=== PATIENT | female | born 1930 | race Caucasian/White ===

== ENCOUNTER 2018-03-25 11:29 | Emergency (ER) | payer MEDICARE, OTHER ==
[~2018-03-25] VITALS: Ht 160 cm; Wt 41.7 kg
[~2018-03-25 11:29] MED LIST: ASPIRIN EC81 MG PO; LEVAQUIN500 MG PO; MIRTAZAPINE30 MG PO; OMEPRAZOLE20 MG PO; QUETIAPINE FUMA25 MG PO; TRAMADOL HCL50 MG PO
[2018-03-25] MEDS ORDERED: NEURONTIN100 MG PO (11:45)
--- NOTE | 2018-03-25 22:19 | EKG ---
[facility] [address] [facility] [place], [place] [address] Signed Sinus bradycardia Otherwise normal ECG No previous ECGs available Confirmed by YANNICK VARELA MD ([id number]) on 03/25/2018 10:19:29 PM Electronically Signed By: YANNICK VARELA MD 03/25/18 2219 PATIENT NAME: ROSETTE MORGANOTIS Ramos Electrocardiogram DATE OF : 32 PHYSICIAN: YANNICK VARELA MD REPORT #: [id number] REPORT IS CONFIDENTIAL AND NOT TO BE RELEASED WITHOUT AUTHORIZATION
== END 2018-03-25 15:20 | disposition home or self-care (01) ==
LOC: ED 11:29
DX: R09.02 Hypoxemia (principal); F03.90 Unspecified dementia, unspecified severity, without behavioral disturbance, psychotic disturbance, mood disturbance, and anxiety; Z87.891 Personal history of nicotine dependence; Z88.5 Allergy status to narcotic agent; Z79.899 Other long term (current) drug therapy; Z79.82 Long term (current) use of aspirin
CPT/HCPCS: 71045; 93005; 93010; 99284

== ENCOUNTER 2020-05-02 18:36 | Emergency (ER) | payer MEDICARE, OTHER ==
[~2020-05-02] VITALS: Ht 160 cm; Wt 41.7 kg
--- OUTSIDE RECORDS SUMMARY | ~2020-05-02 | XMS | Clinical Summary ---
Demographics + + + | Address | [address] | | | [place] [address] | + + + | Preferred Language | Unknown | + + + | Marital Status | Single | + + + | Hoahaoism Affiliation | Unknown | + + + | Race | Unknown | + + + | Ethnic Group | Other Race | + + + Author + + + | Author | NON REVENUE LOCATIONS | + + + | Organization | NON REVENUE LOCATIONS | + + + | Address | Unknown | + + + | Phone | Unavailable | + + + Support + + +---------+ + | Name | Relationship | Address | Phone | + + +---------+ + | None None | ECON | Unknown | Unavailable | + + +---------+ + Care Team Providers + +------+ + | Care Clay Caster Name | Role | Phone | + +------+ + PCP | Unavailable | + +------+ + Source Comments SHANNA is fully live on both [facility] and [facility] Allergies Not on File Medications Not on file Active Problems Not on file Social History + +-------+ +--------+------+ | Tobacco Use | Types | Packs/Day | Years | Date | | | | | Used | | + +-------+ +--------+------+ | Never Assessed | | | | | + +-------+ +--------+------+ + + + | Sex Assigned at | Date Recorded | | | | + + + | Not on file | | + + + + + + + | Job Start Date | Occupation | Industry | + + + + | Not on file | Not on file | Not on file | + + + + + + + + | Travel History | Travel Start | Travel End | + + + + + + | No recent travel history available. | + + Last Filed Vital Signs Not on file Plan of Treatment Not on file Results Not on filefrom Last 3 Months Insurance + +--------+ +--------+ + +--------+ | Payer | Benefi | Subscriber | Effect | Phone | Address | Type | | | t Plan | ID | andreina | | | | | | / | | Dates | | | | | | Group | | | | | | + +--------+ +--------+ + +--------+ | MEDICARE | MEDICA | xxxxxxxxxx | Effect | [phone] | [address] | Medica | | | RE A & | | andreina | [address] | [address] | | | [address] | | for | | [place] | | | | | | all | | [phone] | | | | | | dates | | | | + +--------+ +--------+ + +--------+ | COMMERCIAL | INDIVI | [phone] | Effect | | | Indemn | | INDIVIDUAL | DUAL | | andriena | | | ity | | | COMMER | | for | | | | | | CIAL | | all | | | | | | | | dates | | | | + +--------+ +--------+ + +--------+ + +--------+ +--------+-------+ + | Guarantor Name | Accoun | Relation to | Date | Phone | Billing Address | | | t Type | Patient | of | | | | | | | | | | + +--------+ +--------+-------+ + | Judy De La Rosa | Person | Self | [birth year] | [address] | | | al/Fam | | 1930 | | [place] [address] | | | kalia | | | | | + +--------+ +--------+-------+ +"
--- OUTSIDE RECORDS SUMMARY | ~2020-05-02 | XMS | Encounter Summary ---
Demographics + + + | Address | [address] | | | [place] [address] | + + + | Home Phone | | + + + | Preferred Language | Unknown | + + + | Marital Status | Unknown | + + + | Latter-Day Affiliation | Unknown | + + + | Race | Unknown | + + + | Ethnic Group | Unknown | + + + Author + + + | Author | [facility] | | | and [place] | + + + | Organization | [facility] | | | and [place] | + + + | Address | Unknown | + + + | Phone | Unavailable | + + + Care Team Providers + +------+ + | Care Snow Groomer Name | Role | Phone | + +------+ + PCP | Unavailable | + +------+ + Encounter Details +--------+ + + + + | Date | Type | Department | Care Team | Description | +--------+ + + + + | 03/17/ | Hospital | [facility] | Margie Giordano MD | Guerrero Ramirez-Tenzin | | 2005 | Encounter | [facility] | [address] | Vessel | | | | CLINICAL DECISION | [address] | | | | | [address] [place] [address] | [place], [place] | | | | | [place], [place] | [address] | | | | | [address] | [phone] | | | | | [phone] | | | +--------+ + + + [...] on file | | + + + documented as of this encounter Plan of Treatment Not on filedocumented as of this encounter Visit Diagnoses + + | Diagnosis | + + | Coronary atherosclerosis of unspecified type of vessel, pyramid lake or graft | + + documented in this encounter"
--- OUTSIDE RECORDS SUMMARY | ~2020-05-02 | XMS | Clinical Summary ---
Demographics + + + | Address | [address] | | | [place] [address] | + + + | Home Phone | | + + + | Preferred Language | Unknown | + + + | Marital Status | Unknown | + + + | Denominational Affiliation | Unknown | + + + | Race | Unknown | + + + | Ethnic Group | Unknown | + + + Author + + + | Author | [facility] | | | and [place] | + + + | Organization | [facility] | | | and [place] | + + + | Address | Unknown | + + + | Phone | Unavailable | + + + Care Team Providers + +------+ + | Care Derrick Man Name | Role | Phone | + +------+ + PCP | Unavailable | + +------+ + Allergies Not on File Medications Not on [...] on file | | + + + Last Filed Vital Signs Not on file Plan of Treatment + + +-------+ + | Health Maintenance | Due Date | Last | Comments | | | | Done | | + + +-------+ + | Vaccine: | | | | | Dtap/Tdap/Td (1 - | 0 | | | | Tdap) | | | | + + +-------+ + | Vaccine: Zoster (1 | | | | | of 2) | 1 | | | + + +-------+ + | Vaccine: | | | | | Pneumococcal 65+ (1 | 6 | | | | of 1 - PPSV23) | | | | + + +-------+ + | Vaccine: Influenza | | | | | (#1) | 0 | | | + + +-------+ + Results Not on filefrom Last 3 Months Advance Directives + + + + + | Type | Date Recorded | Patient | Explanation | | | | Phosphorus Processing Supervisor | | + + + + + | Advance | 03/18/2006 3:51 | | | | Directive | PM | | | + + + + + | Advance | 03/17/2006 3:51 | | MAR 17 2006 12:59:05:[id number] GMT | | Directive | PM | | | + + + + + | Advance | 03/17/2006 3:51 | | MAR 17 2006 12:57:24:440 GMT | | Directive | PM | | | + + + + +"
--- OUTSIDE RECORDS SUMMARY | ~2020-05-02 | XMS | Encounter Summary ---
Demographics + + + | Address | [address] | | | [place] [address] | + + + | Home Phone | | + + + | Preferred Language | Unknown | + + + | Marital Status | Unknown | + + + | Latter Day Affiliation | Unknown | + + + | Race | Unknown | + + + | Ethnic Group | Unknown | + + + Author + + + | Author | [facility] | | | and [place] | + + + | Organization | [facility] | | | and [place] | + + + | Address | Unknown | + + + | Phone | Unavailable | + + + Care Team Providers + +------+ + | Care Pot Filler Name | Role | Phone | + +------+ + PCP | Unavailable | + +------+ + Encounter Details +--------+ + + + + | Date | Type | Department | Care Team | Description | +--------+ + + + + | 02/05/ | Hospital | [facility] | | | | 2007 | Encounter | MED CTR XRAY [address] | | | | | | [place] | | | | | | [place] [address] | | | | | | [phone] | | | +--------+ + + + [...] filedocumented as of this encounter Visit Diagnoses Not on filedocumented in this encounter"
--- OUTSIDE RECORDS SUMMARY | ~2020-05-02 | XMS | Encounter Summary ---
Demographics + + + | Address | [address] | | | [place] [address] | + + + | Home Phone | | + + + | Preferred Language | Unknown | + + + | Marital Status | Unknown | + + + | Advent Affiliation | Unknown | + + + | Race | Unknown | + + + | Ethnic Group | Unknown | + + + Author + + + | Author | [facility] | | | and [place] | + + + | Organization | [facility] | | | and [place] | + + + | Address | Unknown | + + + | Phone | Unavailable | + + + Care Team Providers + +------+ + | Care University Controller Name | Role | Phone | + +------+ + PCP | Unavailable | + +------+ + Encounter Details +--------+ + + + + | Date | Type | Department | Care Team | Description | +--------+ + + + + | 05/29/ | Hospital | [facility] | [facility], | Unspecified Backache | | 2007 | Encounter | [facility] | [address] | | | | | CLINICAL DECISION | [address] | | | | | [address] | [place] [address] | | | | | [place], [place] | [phone] | | | | | [address] | | | | | | [phone] | | | +--------+ + + + [...] + | Diagnosis | + + | Backache, unspecified | + + documented in this encounter"
--- OUTSIDE RECORDS SUMMARY | ~2020-05-02 | XMS | Encounter Summary ---
Demographics + + + | Address | [address] | | | [place] [address] | + + + | Home Phone | | + + + | Preferred Language | Unknown | + + + | Marital Status | Unknown | + + + | Church Affiliation | Unknown | + + + | Race | Unknown | + + + | Ethnic Group | Unknown | + + + Author + + + | Author | [facility] | | | and [place] | + + + | Organization | [facility] | | | and [place] | + + + | Address | Unknown | + + + | Phone | Unavailable | + + + Care Team Providers + +------+ + | Care Audioprosthologist Name | Role | Phone | + +------+ + PCP | Unavailable | + +------+ + Encounter Details +--------+ + + + + | Date | Type | Department | Care Team | Description | +--------+ + + + + | 01/08/ | Hospital | [facility] | Conversion | Pain | | 2014 | Encounter | [address]VERSION [address] | Transaction, | | | | [address] | Provider Unknown | | | | | [place], [place] | [phone] | | | | | [address] | | | | | | [phone] | | | +--------+ + + + [...] | + +--------+ + + + | XR CHEST 1 VIEW | Routin | 04/05/2011 | | Results for this | | | e | 12:42 AM | | procedure are in the | | | | PDT | | results section. | + +--------+ + + + documented in this encounter Results XR Chest 1 Vw (04/05/2011 12:42 AM PDT) + + | Specimen | + + | | + + + + + | Narrative | Performed At | + + + | This is a non-reportable procedure without a radiologist report and | | | is used for image storage only | | + + + + + | Procedure Note | + + | Manfred Roberts Arnol - 05/11/2019 11:18 PM PDT This is a non-reportable procedure | | without a radiologist report and isused for image storage only | + + documented in this encounter Visit Diagnoses + + | Diagnosis | + + | Pain Generalized pain | + + documented in this encounter"
--- OUTSIDE RECORDS SUMMARY | ~2020-05-02 | XMS | Encounter Summary ---
Demographics + + + | Address | [address] | | | [place] [address] | + + + | Home Phone | | + + + | Preferred Language | Unknown | + + + | Marital Status | Unknown | + + + | Advent Affiliation | Unknown | + + + | Race | Unknown | + + + | Ethnic Group | Unknown | + + + Author + + + | Author | [facility] | | | and [place] | + + + | Organization | [facility] | | | and [place] | + + + | Address | Unknown | + + + | Phone | Unavailable | + + + Care Team Providers + +------+ + | Care Nursery Supervisor Name | Role | Phone | + +------+ + PCP | Unavailable | + +------+ + Encounter Details +--------+ + + + + | Date | Type | Department | Care Team | Description | +--------+ + + + + | 05/06/ | Hospital | [facility] | [facility]se, | Carotid Art Occ w/o | | 2008 | Encounter | [address] | [address] | Inf[address] | | | | [address] | [place] | | | | | [place], [place] | [place] [address] | | | | | [address] | [phone] | | | | | [phone] | | | +--------+ + + + [...] + | Diagnosis | + + | Occlusion and stenosis of carotid artery without mention of cerebral infarction | + + documented in this encounter"
--- OUTSIDE RECORDS SUMMARY | ~2020-05-02 | XMS | Encounter Summary ---
Demographics + + + | Address | [address] | | | [place] [address] | + + + | Home Phone | | + + + | Preferred Language | Unknown | + + + | Marital Status | Unknown | + + + | Baptist Affiliation | Unknown | + + + | Race | Unknown | + + + | Ethnic Group | Unknown | + + + Author + + + | Author | [facility] | | | and [place] | + + + | Organization | [facility] | | | and [place] | + + + | Address | Unknown | + + + | Phone | Unavailable | + + + Care Team Providers + +------+ + | Care Ironworker Apprentice Shop Name | Role | Phone | + +------+ + PCP | Unavailable | + +------+ + Encounter Details +--------+ + + + + | Date | Type | Department | Care Team | Description | +--------+ + + + + | 04/05/ | Hospital | [facility] | Lasjose antonio, Mo[place], | OTHER GENERAL | | 2010 - | Encounter | [address] | [address] | SYMPTOMS; | | | | [address] | [place], [place] | Unspecified chest | | 04/07/ | | [place], [place] | [address] | pain | | 2010 | | [address] | [phone] | | | | | [phone] | | | +--------+ + + + [...] +--------+ + + + | XR CHEST 2 VIEWS | Routin | 04/06/2011 | | Results for this | | | e | 7:42 AM | | procedure are in the | | | | PDT | | results section. | + +--------+ + + + documented in this encounter Results XR Chest 2 Vws (04/06/2011 7:42 AM PDT) + + | Specimen | + + | | + + + + + | Narrative | Performed At | + + + | [facility] [address] Ph: | | | Patient Name: JAI MORGAN Date of : | | | 1930 Medical Record: [id number] Account: [id number] | | | Exam Date/Time: 04/06/2011 01:40 Ordering | | | Physician: CURT INGRAM Order Detail: [id number] Exam Description: XR | | | CHEST 2 VIEW | | | JAI | | | L NICOLASLETTY XR CHEST 2 VIEW 04/06/2011 1:40 AM HISTORY: 81 years. | | | Female. Chest pain. TECHNIQUE: Dual energy frontal and a | | | lateral chest radiograph. COMPARISON: Images obtained during | | | vertebroplasty of the thoracic spine June 03. FINDINGS: | | | The lungs are clear and well inflated. The cardiac silhouette is | | | mildly enlarged with a cardiothoracic ratio of 15 to 29. Median | | | sternotomy wires are found. A coronary artery stent is visualized. | | | There is unchanged evidence of vertebroplasty involving the lower | | | thoracic spine moderate compression fracture, unchanged. Two other | | | lower thoracic spine unchanged mild compression fractures are noted | | | in this patient with unchanged evidence of osteopenia. No | | | pneumothorax or pleural effusion is identified. The ossifications in | | | the left upper abdominal quadrant are likely vascular in etiology. | | | IMPRESSION: 1. No acute disease. 2. 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 3. Coronary arterial stent. 4. | | | Mild cardiomegaly. 5. Three unchanged lower thoracic spine | | | vertebral compression fractures, one of which demonstrates unchanged | | | evidence of vertebroplasty. | | + + + + + | Procedure Note | + + | ArmandoManfred Conversion - 05/19/2019 2:50 PM PDT | | [facility] | | [facility] [address] | | | | | | Patient Name: JAI MORGAN | | Date of : 1930 | | Medical Record: [id number] | | Account: [id number] | | | | | | Exam Date/Time: 04/06/2011 01:40 | | Ordering Physician: CURT INGRAM | | Order Detail: [id number] | | Exam Description: XR CHEST 2 VIEW | | | | JAI MORGAN | | XR CHEST 2 VIEW | | 04/06/2011 1:40 AM | | | | HISTORY: | | 81 years. Female. Chest pain. | | | | TECHNIQUE: | | Dual energy frontal and a lateral chest radiograph. | | | | COMPARISON: | | Images obtained during vertebroplasty of the thoracic spine 3 June 03. | | | | FINDINGS: | | The lungs are clear and well inflated. The cardiac silhouette is mildly | | enlarged with a cardiothoracic ratio of 15 to 29. Median sternotomy wires | | are found. A coronary artery stent is visualized. There is unchanged | | evidence of vertebroplasty involving the lower thoracic spine moderate | | compression fracture, unchanged. Two other lower thoracic spine unchanged | | mild compression fractures are noted in this patient with unchanged | | evidence of osteopenia. No pneumothorax or pleural effusion is identified. | | The ossifications in the left upper abdominal quadrant are likely vascular | | in etiology. | | | | IMPRESSION: | | 1. No acute disease. | | | | 2. 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 | | | | 3. Coronary arterial stent. | | | | 4. Mild cardiomegaly. | | | | 5. Three unchanged lower thoracic spine vertebral compression | | fractures, one of which demonstrates unchanged evidence of vertebroplasty. | | | | | + + documented in this encounter Visit Diagnoses + + | Diagnosis | + + | Other general symptoms(780.99) Other general symptoms | + + | Chest pain, unspecified | + + documented in this encounter"
--- OUTSIDE RECORDS SUMMARY | ~2020-05-02 | XMS | Encounter Summary ---
Demographics + + + | Address | [address] | | | [place] [address] | + + + | Home Phone | | + + + | Preferred Language | Unknown | + + + | Marital Status | Unknown | + + + | Hindu Affiliation | Unknown | + + + | Race | Unknown | + + + | Ethnic Group | Unknown | + + + Author + + + | Author | [facility] | | | and [place] | + + + | Organization | [facility] | | | and [place] | + + + | Address | Unknown | + + + | Phone | Unavailable | + + + Care Team Providers + +------+ + | Care Mobile Plant Operators Name | Role | Phone | + +------+ + PCP | Unavailable | + +------+ + Encounter Details +--------+ + + + + | Date | Type | Department | Care Team | Description | +--------+ + + + + | 04/06/ | Orders Only | [facility] | Roxy Braxton | | | 2010 | | [facility] | [address] | | | | | CLINICAL LABORATORY | [place], [place] | | | | | [address] [facility] | [address] | | | | | [place], [place] | [phone] | | | | | [address] | | | | | | [phone] | | | +--------+ + + + [...] | + +--------+ + + + | CULTURE, URINE | Timed | 04/06/2011 | | Results for this | | | | 6:03 AM | | procedure are in the | | | | PDT | | results section. | + +--------+ + + + documented in this encounter Results Culture, Urine (04/06/2011 6:03 AM PDT) + + | Specimen | + + | | + + + + + | Narrative | Performed At | + + + | Specimen Description CLEAN CATCH URINE | EXTERNAL LAB | | Testing performed at | | | [facility] [facility];[place] [address] CULTURE | | | <10,000 CFU/ML MIXED GRAM POSITIVE RAGHU | | | NO SUSCEPTIBILITY TO FOLLOW | | | Testing performed | | | at [facility], [address] [place] [address] REPORT STATUS | | | 04/08/2011 FINAL | | + + + + +---------+ + + | Performing | Address | City/State/Zipcode | Phone Number | | Organization | | | | + +---------+ + + | EXTERNAL LAB | | | | + +---------+ + + documented in this encounter Visit Diagnoses Not on filedocumented in this encounter"
--- OUTSIDE RECORDS SUMMARY | ~2020-05-02 | XMS | Encounter Summary ---
Demographics + + + | Address | [address] | | | [place] [address] | + + + | Preferred Language | Unknown | + + + | Marital Status | Single | + + + | Synagogue Affiliation | Unknown | + + + | Race | Unknown | + + + | Ethnic Group | Other Race | + + + Author + + + | Author | [facility] | + + + | Organization | [facility] | + + [...] Team Providers + +------+ + | Care Athletic Instructor Name | Role | Phone | + +------+ + PCP | Unavailable | + +------+ + Encounter Details +--------+ + + + + | Date | Type | Department | Care Team | Description | +--------+ + + + + | 07/19/ | Ancillary | Registration [id number] | Fransico Alex | | | 2005 | Registratio | [address] | [phone] | | | | [address] | [address] Mailcode: [id number] | | | | | | [place], [place] | | | | | | [address] | | | | | | [phone] | | | +--------+ + + + [...] Ph.D./NeuropathologistT: | | | | | | 07/25/06:[facility] / | | | | | | [...] Luciano, | | | | | | [facility] | | | | | | [...] | + + + + + | [facility] DEPARTMENT OF | [address] [facility] | [place] [address] | | | PATHOLOGY | [address] | | | + + + + + | [facility] DEPARTMENT OF | [address] [facility] | [place] [address] | | | PATHOLOGY | [address] | | | + + + + + documented in this encounter Visit Diagnoses Not on filedocumented in this encounter
--- OUTSIDE RECORDS SUMMARY | ~2020-05-02 | XMS | Clinical Summary ---
Demographics + + + | Address | [address] | | | [place] [address] | + + + | Preferred Language | Unknown | + + + | Marital Status | Single | + + + | Methodist Affiliation | Unknown | + + + [...] Team Providers + +------+ + | Care At Home Independent Call Center Agent Name | Role | Phone | + +------+ + PCP | Unavailable | + +------+ + Source Comments SHANNA is fully live on both [facility] and [facility] InPatient.[facility] Allergies Not on [...] | MEDICA | xxxxxxxxxx | Effect | [phone] | [address] | Medica | | | RE A & | | andreina | [address] | re | | | B | | for | | [place] | | | | | | all | | [phone] | | | | | | dates [...] | | 1930 | | [place] [address] | | | kalia | | | | | + +--------+ +--------+-------+ +"
--- OUTSIDE RECORDS SUMMARY | ~2020-05-02 | XMS | Encounter Summary ---
Demographics + + + | Address | [address] | | | [place] [address] | + + + | Home Phone [...] | Author | [facility] | | | and [place] | + + + | Organization | [facility] | | | and [place] | + + + | Address | Unknown | + + + | Phone | Unavailable | + + + Care Team Providers + +------+ + | Care Greenhouse Florist Name | Role | Phone | + +------+ + PCP | Unavailable | + +------+ + Encounter Details +--------+ + + + + | Date | Type | Department | Care Team | Description | +--------+ + + + + | 07/19/ | Hospital | [facility] | Zi Garcia, | Pain in Limb | | 2005 - | Encounter | CONVERSION [address] | [address] | | | | | [address] | [address] | | | 07/25/ | | [place], [place] | [place] [address] | | | 2005 | | [address] | [phone] | | | | | [phone] | | | +--------+ + + + [...] | Diagnosis | + + | Pain in soft tissues of limb Pain in limb | + + documented in this encounter"
--- OUTSIDE RECORDS SUMMARY | ~2020-05-02 | XMS | Encounter Summary ---
Demographics + + + | Address | [address] | | | [place] [address] | + + + | Home Phone | | + + + | Preferred Language | Unknown | + + + | Marital Status | Unknown | + + + | Muslim Affiliation | Unknown | + + + | Race | Unknown | + + + | Ethnic Group | Unknown | + + + Author + + + | Author | [facility] | | | and [place] | + + + | Organization | [facility] | | | and [place] | + + + | Address | Unknown | + + + | Phone | Unavailable | + + + Care Team Providers + +------+ + | Care Fiber Optic Central Office Installer Name | Role | Phone | + +------+ + PCP | Unavailable | + +------+ + Encounter Details +--------+ + + + + | Date | Type | Department | Care Team | Description | +--------+ + + + + | 04/23/ | Hospital | [facility] GENER[facility] OP | Tse, | | | 2008 | Encounter | CONVERSION [address] | [address] | | | | | [address] | [place] | | | | | [place], [place] | [place] [address] | | | | | [address] | [phone] | | | | | [phone] | | | +--------+ + + + [...]
--- OUTSIDE RECORDS SUMMARY | ~2020-05-02 | XMS | Encounter Summary ---
Demographics + + + | Address | [address] | | | [place] [address] | + + + | Preferred Language | Unknown | + + + | Marital Status | Single | + + + | Shinto Affiliation | Unknown | + + + | Race | Unknown | + + + | Ethnic Group | Other Race | + + + Author + + + | Author | [facility] | + + + | Organization | [facility] | + + + | Address | Unknown | + + + | Phone | Unavailable | + + + Support + + +---------+ + | Name | Relationship | Address | Phone | + + +---------+ + | None None | ECON | Unknown | Unavailable | + + +---------+ + Care Team Providers + +------+ + | Care Case Advocate Name | Role | Phone | + +------+ + PCP | Unavailable | + +------+ + Encounter Details +--------+ + + + + | Date | Type | Department | Care Team | Description | +--------+ + + + + | 07/19/ | Ancillary | Registration [id number] | Fransico Alex | | | 2005 | Registratio | [address] | [phone] | | | | n | Rd Mailcode: RPB07 | | | | | | [place], [place] | | | | | | [address] | | | | | | [phone] | | | +--------+ + + + [...] Ph.D./NeuropathologistT: | | | | | | 07/25/06:[facility] / | | | | | | [...] Luciano, | | | | | | [facility] | | | | | [...] | + + + + + | [facility] DEPARTMENT OF | [address] [facility] | [place] [address] | | | PATHOLOGY | [address] | | | + + + + + | [facility] DEPARTMENT OF | [address] [facility] | [place] [address] | | | PATHOLOGY | [address] | | | + + + + + documented in this encounter Visit Diagnoses Not on filedocumented in this encounter
[~2020-05-02 18:36] MED LIST changes: +NEURONTIN100 MG PO
[2020-05-02] MEDS ORDERED: NORCO 5-325 TA1 EACH PO (20:21)
== END 2020-05-02 20:36 | disposition home or self-care (01) ==
LOC: ED 18:36
DX: S72.111A Displaced fracture of greater trochanter of right femur, initial encounter for closed fracture (principal); Z88.5 Allergy status to narcotic agent; Z79.899 Other long term (current) drug therapy; W18.30XA Fall on same level, unspecified, initial encounter
CPT/HCPCS: 73502; 99284-25

== ENCOUNTER 2020-05-05 09:32 | Emergency (ER) | payer MEDICARE, OTHER ==
[~2020-05-05] VITALS: Ht 160 cm; Wt 41.7 kg
--- OUTSIDE RECORDS SUMMARY | ~2020-05-05 | XMS | Encounter Summary ---
Demographics + + + | Address | [address] | | | [place] [address] | + + + | Preferred Language | Unknown | + + + | Marital Status | Single | + + + | Confucianist Affiliation | Unknown | + + + | Race | Unknown | + + + | Ethnic Group | Other Race | + + + Author + + + | Author | [facility] | + + + | Organization | [facility] | + + + | Address | Unknown | + + + | Phone | Unavailable | + + + Support + + +---------+ + | Name | Relationship | Address | Phone | + + +---------+ + | None None | ECON | Unknown | Unavailable | + + +---------+ + Care Team Providers + +------+ + | Care Help Desk Consultant Name | Role | Phone | + +------+ + PCP | Unavailable | + +------+ + Encounter Details +--------+ + + + + | Date | Type | Department | Care Team | Description | +--------+ + + + + | 07/19/ | Ancillary | Registration [id number] | Fransico Alex | | | 2005 | Registratio | [address] | [phone] | | | | n | Rd Mailcode: RPB[address] | | | | | | [place], [place] | | | | | | [address] | | | | | | [phone] | | | +--------+ + + + + Social History + +-------+ +--------+------+ | Tobacco [...] recent travel history available. | + + documented as of this encounter Plan of Treatment Not on filedocumented as of this encounter Procedures + +--------+ + + + | Procedure Name | Priori | Date/Time | Associated Diagnosis | Comments | | | ty | | | | + +--------+ + + + | SURGICAL PATHOLOGY | Routin | 07/19/2006 | | Results for this | | | e | | | procedure are in the | | | | | | results section. | + +--------+ + + + documented in this encounter Results SURGICAL PATHOLOGY (07/19/2006) + + + + + + | Component | Value | Ref Range | Performed | Pathologist | | | | | At | Signature | + + + + + + | SURGICAL | SOURCE OF SPECIMEN:A | | [facility] | | | PATHOLOGY | Muscle Biopsy, Myopathy | | DEPARTMENT | | | | Final Pathologic | | OF | | | | Diagnosis:Muscle, right | | PATHOLOGY | | | | upper thigh, biopsy: | | | | | | - Mild non-specific | | | | | | changes (see comment) | | | | | | Comment: There is a | | | | | | suggestion of mild | | | | | | denervation atrophy, but | | | | | | thisappearance may be | | | | | | exaggerated by the poor | | | | | | tissue preservation. A | | | | | | singlefocus of | | | | | | endomysial macrophages, | | | | | | without apparent | | | | | | phagocytosis of | | | | | | musclefibers, is | | | | | | identified. The | | | | | | significance of this is | | | | | | unclear. Case reviewed | | | | | | by:Risa Flores, | | | | | | M.D./Neuropathology | | | | | | Grazyna Jay, | | | | | | M.D., | | | | | | Ph.D./NeuropathologistT: | | | | | | 07/25/06:[facility] / | | | | | | /f I have | | | | | | reviewed all diagnostic | | | | | | slides and have edited | | | | | | the gross | | | | | | and/ormicroscopic | | | | | | portion of this report | | | | | | as part of my pathologic | | | | | | assessment andfinal | | | | | | diagnosis. Clinical | | | | | | History:The patient is a | | | | | | 76-year-old woman. No | | | | | | neurological history | | | | | | was provided. Gross | | | | | | Description:Received | | | | | | from Ty Luciano, | | | | | | [facility] | | | | | | is a light-pinkfragment | | | | | | of tissue with fat, | | | | | | labeled "right upper | | | | | | thigh," delivered via | | | | | | [employer] on moist gauze on | | | | | | ice. The specimen | | | | | | measures 2.0 x 1.5 x 0.6 | | | | | | cm. Aportion of the | | | | | | specimen is fixed in | | | | | | formalin for paraffin | | | | | | embedding asblock A2, a | | | | | | small fragment is fixed | | | | | | in glutaraldehyde for | | | | | | possible | | | | | | electronmicroscopy, and | | | | | | the rest is frozen for | | | | | | histochemical studies. | | | | | | Microscopic | | | | | | Description:Frozen | | | | | | sections are stained | | | | | | with hematoxylin and | | | | | | eosin, Gomori | | | | | | trichrome,Oil red O, PAS | | | | | | with and without | | | | | | diastase, and for SDH, | | | | | | NADH, cytochromeoxidase, | | | | | | ATPase at pH 9.4 and | | | | | | 4.5, acid phosphatase, | | | | | | alkaline phosphataseand | | | | | | non-specific esterase. | | | | | | The hematoxylin and | | | | | | eosin-stained frozen | | | | | | sections reveal an | | | | | | adequate sizedpiece of | | | | | | skeletal muscle with | | | | | | poor preservation. | | | | | | There is | | | | | | substantialfreeze | | | | | | artifact and artifactual | | | | | | separation of the | | | | | | myofibers. The | | | | | | musclefibers are | | | | | | relatively uniform in | | | | | | size and shape, with | | | | | | average diameter of50-70 | | | | | | microns. Rare | | | | | | angular, atrophic fibers | | | | | | are identified. The | | | | | | nucleiare predominantly | | | | | | peripherally placed. | | | | | | There are a few | | | | | | scattered | | | | | | pyknoticnuclear clumps. | | | | | | There is no muscle | | | | | | fiber necrosis or | | | | | | phagocytosis andthere | | | | | | are no regenerating | | | | | | fibers. A single, | | | | | | small focus of | | | | | | endomysialmacrophages is | | | | | | identified, without | | | | | | apparent phagocytosis of | | | | | | muscle fibers.There are | | | | | | no lymphocytic | | | | | | infiltrates and no | | | | | | vasculitis. The | | | | | | trichrome shows similar | | | | | | findings and there are | | | | | | no ragged red fibers | | | | | | orrimmed vacuoles. PAS | | | | | | stains show normal | | | | | | glycogen content. Oil | | | | | | red O stainshows normal | | | | | | amounts of lipid. The | | | | | | NADH stain shows a | | | | | | normal | | | | | | checkerboardpattern of | | | | | | fiber type distribution | | | | | | and a normal | | | | | | intermyofibrillary | | | | | | network.No target or | | | | | | targetoid fibers are | | | | | | identified. The SDH | | | | | | stain isunremarkable and | | | | | | shows no abnormal | | | | | | mitochondrial | | | | | | accumulations. | | | | | | Thecytochrome oxidase | | | | | | stain does not reveal | | | | | | negative fibers. The | | | | | | ATPasestains reveal rare | | | | | | angular, atrophic | | | | | | fibers of both fiber | | | | | | types. Thisappearance | | | | | | may be exaggerated due | | | | | | to the poor tissue | | | | | | preservation andpossibly | | | | | | artifactual shrunken | | | | | | appearance of many | | | | | | muscle fibers. The | | | | | | type 1to type 2 fiber | | | | | | ratio is approximately | | | | | | 1:1. There are no | | | | | | fiber typegroups. The | | | | | | alkaline phosphatase | | | | | | stain does not reveal | | | | | | increased | | | | | | lysosomalactivity within | | | | | | muscle fibers and | | | | | | highlights a single of | | | | | | endomysialmacrophages. | | | | | | The acid phosphatase | | | | | | stain does not reveal | | | | | | increased stainingof the | | | | | | connective tissue. | | | | | | The non-specific | | | | | | esterase stain also | | | | | | highlightsthe focus of | | | | | | endomysial macrophages, | | | | | | but shows no abnormal | | | | | | staining ofmuscle | | | | | | fibers.Rendering | | | | | | Diagnostician: | | | | | | Michelle Jay M.D., | | | | | | | | | | | | Ph.D.PathologistElectr | | | | | | onically Signed | | | | | | 07/31/2006 | | | | + + + + + + + + | Specimen | + + | | + + + + + | Narrative | Performed At | + + + | Ordered by Ankita Crawford | [facility] | | | DEPARTMENT OF | | | PATHOLOGY | + + + + + + + + | Performing | Address | City/State/Zipcode | Phone Number | | Organization | | | | + + + + + | [facility] DEPARTMENT OF | [address] | [place] [address] | | | PATHOLOGY | [address] | | | + + + + + | [facility] DEPARTMENT OF | [address] | [place] [address] | | | PATHOLOGY | [address] | | | + + + + + documented in this encounter Visit Diagnoses Not on filedocumented in this encounter
--- OUTSIDE RECORDS SUMMARY | ~2020-05-05 | XMS | Clinical Summary ---
Demographics + + + | Address | [address] | | | [place] [address] | + + + | Preferred Language | Unknown | + + + | Marital Status | Single | + + + | Yarsanism Affiliation | Unknown | + + + [...] Team Providers + +------+ + | Care Wire Harness Design Engineer Name | Role | Phone | + +------+ + PCP | Unavailable | + +------+ + Source Comments SHANNA is fully live on both [facility] and [facility] InPatient.Pending Sale To [facility] Allergies Not [...] | [facility] | xxxxxxxxxx | Effect | [phone] | [address] | [address] | | | RE A & | | andreina | 1 | [address] | re | | | B | | for | | [place] Espinoza | | | | | | all | | [phone] | | | | | | dates | | | | + +--------+ +--------+ + +--------+ | COMMERCIAL | INDIVI | [id number] | Effect | | | Indemn | | INDIVIDUAL | DUAL | | andreina | | | ity | | | [...] | | 1930 | | [place] [address] | | | kalia | | | | | + +--------+ +--------+-------+ +"
--- OUTSIDE RECORDS SUMMARY | ~2020-05-05 | XMS | Encounter Summary ---
Demographics + + + | Address | [address] | | | [place] [address] | + + + | Preferred Language | Unknown | + + + | Marital Status | Single | + + + | Voodoo Affiliation | Unknown | + + + | Race | Unknown | + + + | Ethnic Group | Other Race | + + + Author + + + | Author | [facility] | + + + | Organization | [facility] | + + + | Address | Unknown | + + + | Phone | Unavailable | + + + Support + + +---------+ + | Name | Relationship | Address | Phone | + + +---------+ + | None None | ECON | Unknown | Unavailable | + + +---------+ + Care Team Providers + +------+ + | Care Rod Piler Name | Role | Phone | + +------+ + PCP | Unavailable | + +------+ + Encounter Details +--------+ + + + + | Date | Type | Department | Care Team | Description | +--------+ + + + + | 07/19/ | Ancillary | Registration [id number] | Fransico Alex | | | 2005 | Registratio | [address] | [phone] | | | | n | Rd Mailcode: RPB07 | | | | | | [place], [place] | | | | | | [address] | | | | | | [phone] | | | +--------+ + + + [...] Ph.D./NeuropathologistT: | | | | | | 07/25/06:[facility] / | | | | | [...] Luciano, | | | | | | [facility] | | | | | | is [...] | + + + + + | [facility] DEPARTMENT OF | [address] [facility] | [place] [address] | | | PATHOLOGY | [address] | | | + + + + + | [facility] DEPARTMENT OF | [address] [facility] | [place] [address] | | | PATHOLOGY | [address] | | | + + + + + documented in this encounter Visit Diagnoses Not on filedocumented in this encounter
--- OUTSIDE RECORDS SUMMARY | ~2020-05-05 | XMS | Encounter Summary ---
Demographics + + + | Address | [address] | | | [place] [address] | + + + | Home Phone | | + + + | Preferred Language | Unknown | + + + | Marital Status | Unknown | + + + | Sikhism Affiliation | Unknown | + + + | Race | Unknown | + + + | Ethnic Group | Unknown | + + + Author + + + | Author | [facility] | | | and [place] | + + + | Organization | [facility] | | | and [place] | + + + | Address | Unknown | + + + | Phone | Unavailable | + + + Care Team Providers + +------+ + | Care Support Services Rep Name | Role | Phone | + +------+ + PCP | Unavailable | + +------+ + Encounter Details +--------+ + + + + | Date | Type | Department | Care Team | Description | +--------+ + + + + | 05/29/ | Hospital | [facility] | [facility], | Unspecified Backache | | 2007 | Encounter | [facility] | MD [address] | | | | | CLINICAL DECISION | [address] | | | | | [address] | [place] [address] | | | | | [place], [place] | [phone] | | | | | [address] | | | | | | [phone] | | | +--------+ + + + [...]
--- OUTSIDE RECORDS SUMMARY | ~2020-05-05 | XMS | Encounter Summary ---
Demographics + + + | Address | [address] | | | [place] [address] | + + + | Home Phone | | + + + | Preferred Language | Unknown | + + + | Marital Status | Unknown | + + + | Yarsani Affiliation | Unknown | + + + | Race | Unknown | + + + | Ethnic Group | Unknown | + + + Author + + + | Author | [facility] | | | and [place] | + + + | Organization | [facility] | | | and [place] | + + + | Address | Unknown | + + + | Phone | Unavailable | + + + Care Team Providers + +------+ + | Care Insurance Coordinator Name | Role | Phone | + +------+ + PCP | Unavailable | + +------+ + Encounter Details +--------+ + + + + | Date | Type | Department | Care Team | Description | +--------+ + + + + | 03/17/ | Hospital | [facility] | Margie Giordano MD | Guerrero Ramirez-Tenzin | | 2005 | Encounter | [facility] | [address] | Vessel | | | | CLINICAL DECISION | [address] | | | | | [address] [place] [address] | [place], [place] | | | | | [place], [place] | [address] | | | | | [address] | [phone] | | | | | [phone] | | | +--------+ + + + [...] Coronary atherosclerosis of unspecified type of vessel, lower elwha or graft | + + documented in this encounter"
--- OUTSIDE RECORDS SUMMARY | ~2020-05-05 | XMS | Encounter Summary ---
Demographics + + + | Address | [address] | | | [place] [address] | + + + | Home Phone | | + + + | Preferred Language | Unknown | + + + | Marital Status | Unknown | + + + | Confucianist Affiliation | Unknown | + + + | Race | Unknown | + + + | Ethnic Group | Unknown | + + + Author + + + | Author | [facility] | | | and [place] | + + + | Organization | [facility] | | | and [place] | + + + | Address | Unknown | + + + | Phone | Unavailable | + + + Care Team Providers + +------+ + | Care Aircraft Loadmaster Superintendent Name | Role | Phone | + +------+ + PCP | Unavailable | + +------+ + Encounter Details +--------+ + + + + | Date | Type | Department | Care Team | Description | +--------+ + + + + | 05/06/ | Hospital | [facility] [place] [place] [facility] | Tse, | Carotid Art Occ w/o | | 2008 | Encounter | [address] | [address] | [address] | | | | [address] | [place] | | | | | [place], [place] | [place] [address] | | | | | [address] | [phone] | | | | | [phone] | | | +--------+ + + + [...]
--- OUTSIDE RECORDS SUMMARY | ~2020-05-05 | XMS | Encounter Summary ---
Demographics + + + | Address | [address] | | | [place] [address] | + + + | Home Phone | | + + + | Preferred Language | Unknown | + + + | Marital Status | Unknown | + + + | Uatsdin Affiliation | Unknown | + + + | Race | Unknown | + + + | Ethnic Group | Unknown | + + + Author + + + | Author | [facility] | | | and [place] | + + + | Organization | [facility] | | | and [place] | + + + | Address | Unknown | + + + | Phone | Unavailable | + + + Care Team Providers + +------+ + | Care Jumbo Operator Name | Role | Phone | + +------+ + PCP | Unavailable | + +------+ + Encounter Details +--------+ + + + + | Date | Type | Department | Care Team | Description | +--------+ + + + + | 02/05/ | Hospital | [facility] | | | | 2007 | Encounter | MED CTR XRAY [address] | | | | | | [address] | | | | | | [place] [address] | | | | | | [phone] | | | +--------+ + + + [...]
--- OUTSIDE RECORDS SUMMARY | ~2020-05-05 | XMS | Encounter Summary ---
Demographics + + + | Address | [address] | | | [place] [address] | + + + | Home Phone | | + + + | Preferred Language | Unknown | + + + | Marital Status | Unknown | + + + | Adventism Affiliation | Unknown | + + + | Race | Unknown | + + + | Ethnic Group | Unknown | + + + Author + + + | Author | [facility] | | | and [place] | + + + | Organization | [facility] | | | and [place] | + + + | Address | Unknown | + + + | Phone | Unavailable | + + + Care Team Providers + +------+ + | Care Naphthalene Still Operator Name | Role | Phone | + +------+ + PCP | Unavailable | + +------+ + Encounter Details +--------+ + + + + | Date | Type | Department | Care Team | Description | +--------+ + + + + | 04/23/ | Hospital | [facility] | Tse, | | | 2008 | Encounter | [address]VERSION [address] | [address] | | | | | [address] | [place] | | | | | [place], [place] | [place] [address] | | | | | [address] | [phone] | | | | | [phone] | | | +--------+ + + + [...]
--- OUTSIDE RECORDS SUMMARY | ~2020-05-05 | XMS | Clinical Summary ---
Demographics + + + | Address | [address] | | | [place] [address] | + + + | Preferred Language | Unknown | + + + | Marital Status | Single | + + + | Spiritism Affiliation | Unknown | + + + [...] Providers + +------+ + | Care Wire Communications Engineer Name | Role | Phone | + +------+ + PCP | Unavailable | + +------+ + Source Comments SHANNA is fully live on both [facility] Ambulatory and [facility] InPatient.[facility] Allergies Not on [...] | [facility] | xxxxxxxxxx | Effect | [phone] | [address] | [address] | | | RE A & | | andreina | [address] | [address] | re | | | B | | for | | [place] Espinoza | | | | | | all | | [phone] | | | | | | dates [...] | | 1930 | | [place] [address] | | | kalia | | | | | + +--------+ +--------+-------+ +"
--- OUTSIDE RECORDS SUMMARY | ~2020-05-05 | XMS | Encounter Summary ---
Demographics + + + | Address | [address] | | | [place] [address] | + + + | Home Phone | | + + + | Preferred Language | Unknown | + + + | Marital Status | Unknown | + + + | Gnosticism Affiliation | Unknown | + + + | Race | Unknown | + + + | Ethnic Group | Unknown | + + + Author + + + | Author | [facility] | | | and [place] | + + + | Organization | [facility] | | | and [place] | + + + | Address | Unknown | + + + | Phone | Unavailable | + + + Care Team Providers + +------+ + | Care Nurse Assistant Name | Role | Phone | + +------+ + PCP | Unavailable | + +------+ + Encounter Details +--------+ + + + + | Date | Type | Department | Care Team | Description | +--------+ + + + + | 01/08/ | Hospital | [facility] | Conversion | Pain | | 2014 | Encounter | [address] | Transaction, | | | | | [address] | Provider Unknown | | | | | [place], [place] | [phone] | | | | | [address] | | | | | | [phone] | | | +--------+ + + + [...]
--- OUTSIDE RECORDS SUMMARY | ~2020-05-05 | XMS | Clinical Summary ---
Demographics + + + | Address | [address] | | | [place] [address] | + + + | Home Phone | | + + + | Preferred Language | Unknown | + + + | Marital Status | Unknown | + + + | Congregational Affiliation | Unknown | + + + | Race | Unknown | + + + | Ethnic Group | Unknown | + + + Author + + + | Author | [facility] | | | and [place] | + + + | Organization | [facility] | | | and [place] | + + + | Address | Unknown | + + + | Phone | Unavailable | + + + Care Team Providers + +------+ + | Care Dice Manager Name | Role | Phone | + [...] Patient | Explanation | | | | Grading Supervisor | | + + + + [...]
--- OUTSIDE RECORDS SUMMARY | ~2020-05-05 | XMS | Encounter Summary ---
Demographics + + + | Address | [address] | | | [place] [address] | + + + | Home Phone | | + + + | Preferred Language | Unknown | + + + | Marital Status | Unknown | + + + | Yazidism Affiliation | Unknown | + + + | Race | Unknown | + + + | Ethnic Group | Unknown | + + + Author + + + | Author | [facility] | | | and [place] | + + + | Organization | [facility] | | | and [place] | + + + | Address | Unknown | + + + | Phone | Unavailable | + + + Care Team Providers + +------+ + | Care Waredresser Name | Role | Phone | + +------+ + PCP | Unavailable | + +------+ + Encounter Details +--------+ + + + + | Date | Type | Department | Care Team | Description | +--------+ + + + + | 07/19/ | Hospital | [facility] | Zi Garcia, | Pain in Limb | | 2005 - | Encounter | [address] | MD [address] | | | | | [address] | [address] | | | 07/25/ | | [place], [place] | [place] [address] | | | 2005 | | [address] | [phone] | | | | | [phone] | | | +--------+ + + + [...]
--- OUTSIDE RECORDS SUMMARY | ~2020-05-05 | XMS | Encounter Summary ---
Demographics + + + | Address | [address] | | | [place] [address] | + + + | Home Phone | | + + + | Preferred Language | Unknown | + + + | Marital Status | Unknown | + + + | Shinto Affiliation | Unknown | + + + | Race | Unknown | + + + | Ethnic Group | Unknown | + + + Author + + + | Author | [facility] | | | and [place] | + + + | Organization | Located Within [facility] | | | and [place] | + + + | Address | Unknown | + + + | Phone | Unavailable | + + + Care Team Providers + +------+ + | Care Second Cook And Baker Name | Role | Phone | + +------+ + PCP | Unavailable | + +------+ + Encounter Details +--------+ + + + + | Date | Type | Department | Care Team | Description | +--------+ + + + + | 04/05/ | Hospital | [facility] | Lasjose antonio, [place], | OTHER GENERAL | | 2010 - | Encounter | [address] | [address] | SYMPTOMS; | | | | [address] | [place], [place] | Unspecified chest | | 04/07/ | | [place], [place] | [address] | pain | | 2010 | | [address] | [phone] | | | | | [phone] | | | +--------+ + + + [...] Performed At | + + + | [facility] [address] Ph: | | | Patient Name: JAI MORGAN Date of : | | | 1930 Medical Record: [id number] Account: [id number] | | | Exam Date/Time: 04/06/2011 01:40 Ordering | | | Physician: CURT INGRAM Order Detail: [id number] Exam Description: XR | | | CHEST [...] - 05/19/2019 2:50 PM PDT | | [facility] | | [facility] [address] | | | | | | Patient Name: JAI MORGAN | | Date of : 1930 | | Medical Record: [id number] | | Account: [id number] | | | | | | Exam [...]
--- OUTSIDE RECORDS SUMMARY | ~2020-05-05 | XMS | Encounter Summary ---
Demographics + + + | Address | [address] | | | [place] [address] | + + + | Home Phone | | + + + | Preferred Language | Unknown | + + + | Marital Status | Unknown | + + + | Christian Affiliation | Unknown | + + + | Race | Unknown | + + + | Ethnic Group | Unknown | + + + Author + + + | Author | [facility] | | | and [place] | + + + | Organization | [facility] | | | and [place] | + + + | Address | Unknown | + + + | Phone | Unavailable | + + + Care Team Providers + +------+ + | Care Spinning Lathe Operator Hydraulic Name | Role | Phone | + +------+ + PCP | Unavailable | + +------+ + Encounter Details +--------+ + + + + | Date | Type | Department | Care Team | Description | +--------+ + + + + | 04/06/ | Orders Only | [facility] | Roxy Braxton | | | 2010 | | [facility] | [address] | | | | | CLINICAL LABORATORY | [place], [place] | | | | | [address] | [address] | | | | | [place], [place] | [phone] | | | | | [address] | | | | | | [phone] | | | +--------+ + + + [...] | Testing performed at | | | [facility];[address] [facility];[place] [address] CULTURE | | | <10,000 CFU/ML MIXED GRAM POSITIVE RAGHU | | | NO SUSCEPTIBILITY TO FOLLOW | | | Testing performed | | | at [facility], [address] [place] [address] REPORT STATUS | | | 04/08/2011 FINAL [...]
[~2020-05-05 09:32] MED LIST changes: +NORCO 5-325 TA1 EACH PO
[2020-05-05] MEDS ORDERED: OMEPRAZOLE20 MG PO (09:46)
== END 2020-05-05 14:39 | disposition home or self-care (01) ==
LOC: ED 09:32
DX: R62.7 Adult failure to thrive (principal); Z87.891 Personal history of nicotine dependence; Z88.5 Allergy status to narcotic agent; Z79.899 Other long term (current) drug therapy
CPT/HCPCS: 51701; 80053; 81001; 85025; 99284-25; J7040